=== PATIENT | female | born 1960 | race African-American/Black ===

== ENCOUNTER 2016-07-05 11:55 | Emergency (ER) | payer OTHER, MEDICAID ==
[~2016-07-05] VITALS: Ht 175.3 cm; Wt 77.0 kg
[~2016-07-05 11:55] MED LIST: HYDROCHLOROTHIAZIDE; LOSARTAN
[2016-07-05] MEDS ORDERED: KETOROLAC 60MG/2ML VIAL IM ONE ×2 (12:45→13:30)
[2016-07-05 13:29] LABS: CLARITY URINE CLEAR (CLEAR); COLOR URINE YELLOW (YELLOW); GLUCOSE URINE NEGATIVE (NEGATIVE); KETONES URINE NEGATIVE (NEGATIVE); LEUKOCYTE ESTERASE URINE 1+ (NEGATIVE); NITRITE URINE NEGATIVE (NEGATIVE); OCCULT BLOOD URINE NEGATIVE (NEGATIVE); PROTEIN URINE NEGATIVE (NEGATIVE); UROBILINOGEN URINE 0.2 E.U./dL (0.2-1.0)
[2016-07-05 13:42] VITALS: BP 127/81
[2016-07-05 13:45] LABS: BACTERIA URINE NONE SEEN; RBC URINE NONE SEEN /hpf (0-2); SQUAMOUS EPITHELIAL CELL URINE 1+ /lpf (RARE/1+)
== END 2016-07-05 15:31 | disposition home or self-care (01) ==
LOC: ER 12:23
DX: M54.5 Low back pain (principal); I10 Essential (primary) hypertension; Z87.891 Personal history of nicotine dependence
CPT/HCPCS: 81001; 87086; 96372; 99284; J1885

== ENCOUNTER 2016-12-10 08:00 | Emergency (ER) | payer OTHER, MEDICAID ==
[~2016-12-10] VITALS: Ht 175.3 cm; Wt 77.0 kg
[2016-12-10 08:02] VITALS: BP 112/78
[2016-12-10] MEDS ORDERED: BACITRACIN ZINC OINT UDPKT TOP ONE (09:00)
== END 2016-12-10 10:33 | disposition home or self-care (01) ==
LOC: ER 08:00
DX: S80.812A Abrasion, left lower leg, initial encounter (principal); S60.512A Abrasion of left hand, initial encounter; I10 Essential (primary) hypertension; R05 Cough; W55.03XA Scratched by cat, initial encounter; Y93.89 Activity, other specified; Y92.89 Other specified places as the place of occurrence of the external cause; Y99.8 Other external cause status
CPT/HCPCS: 71010; 99283

== ENCOUNTER 2017-04-23 09:01 | Emergency (ER) | payer OTHER, MEDICAID ==
[~2017-04-23] VITALS: Ht 175.3 cm; Wt 80.0 kg
[2017-04-23 12:35] LABS: CLARITY URINE CLEAR (CLEAR); COLOR URINE YELLOW (YELLOW); KETONES URINE NEGATIVE (NEGATIVE); LEUKOCYTE ESTERASE URINE TRACE (NEGATIVE); NITRITE URINE NEGATIVE (NEGATIVE); OCCULT BLOOD URINE NEGATIVE (NEGATIVE); PROTEIN URINE NEGATIVE (NEGATIVE); SPECIFIC GRAVITY URINE 1.019 (1.005-1.030); UROBILINOGEN URINE 0.2 E.U./dL (0.2-1.0)
[2017-04-23 14:35] VITALS: BP 152/101
== END 2017-04-23 15:10 | disposition home or self-care (01) ==
LOC: ER 13:19
DX: R30.0 Dysuria (principal); R07.81 Pleurodynia; I10 Essential (primary) hypertension; Z87.442 Personal history of urinary calculi; Z87.440 Personal history of urinary (tract) infections
CPT/HCPCS: 81001; 99283

== ENCOUNTER 2017-05-04 12:19 | Emergency (ER) | payer OTHER, MEDICAID ==
[~2017-05-04] VITALS: Ht 175.3 cm; Wt 82.0 kg
[2017-05-04] MEDS ORDERED: ASPIRIN 81MG TABLET PO ONE (13:30)
[2017-05-04 14:08] LABS: BASOPHILS % 0.8 % (0.0-2.0); EOSINOPHILS % 0.4 % (0.0-5.0); HEMATOCRIT. 40.1 % (36.0-48.0); HEMOGLOBIN. 13.4 g/dL (12.0-16.0); LYMPHOCYTES % 52.3 % (20.0-50.0); MEAN CORPUSCULAR HEMOGLOBIN 30.3 pg (28.0-32.0); MEAN CORPUSCULAR VOLUME 90.2 fL (81.0-99.0); MEAN PLATELET VOLUME 7.7 fl (7.4-10.4); MONOCYTES % 10.5 % (2.0-8.0); PLATELET 222 x1000/uL (130-400); RED BLOOD CELL COUNT 4.44 mill/uL (4.2-5.4); RED CELL DISTRIBUTION WIDTH 13.1 % (11.6-14.6)
[2017-05-04 14:15] LABS: PARTIAL THROMBOPLASTIN TIME 25.9 sec (23.4-31.0); PROTHROMBIN TIME 10.7 sec (9.4-11.6)
[2017-05-04 14:35] LABS: CHLORIDE 104 mEq/L (98-107)
[2017-05-04 19:53] VITALS: BP 112/77
[2017-05-04] MEDS ORDERED: ASPIRIN 81MG TABLET PO NR (20:45)
[2017-05-04 21:51] LABS: CLARITY URINE CLEAR (CLEAR); COLOR URINE YELLOW (YELLOW); KETONES URINE TRACE (NEGATIVE); LEUKOCYTE ESTERASE URINE 1+ (NEGATIVE); NITRITE URINE NEGATIVE (NEGATIVE); OCCULT BLOOD URINE NEGATIVE (NEGATIVE); PROTEIN URINE NEGATIVE (NEGATIVE); SPECIFIC GRAVITY URINE 1.026 (1.005-1.030); UROBILINOGEN URINE 0.2 E.U./dL (0.2-1.0)
== END 2017-05-04 23:17 | disposition home or self-care (01) ==
LOC: ER 14:51
DX: J06.9 Acute upper respiratory infection, unspecified (principal); N39.0 Urinary tract infection, site not specified; R79.1 Abnormal coagulation profile; I10 Essential (primary) hypertension; Z79.82 Long term (current) use of aspirin; Z87.442 Personal history of urinary calculi
CPT/HCPCS: 36415; 71045; 81001; 83880; 84484; 87804; 93005; 99285

== ENCOUNTER 2018-04-27 09:57 | Emergency (ER) | payer OTHER, MEDICAID ==
[~2018-04-27] VITALS: Ht 165.1 cm; Wt 86.0 kg
[2018-04-27] MEDS ORDERED: ASPIRIN 81MG TABLET PO ONE (12:15)
[2018-04-27 13:36] LABS: BASOPHILS % 1.3 % (0.0-2.0); EOSINOPHILS % 3.3 % (0.0-5.0); HEMATOCRIT. 38.4 % (36.0-48.0); HEMOGLOBIN. 12.6 g/dL (12.0-16.0); LYMPHOCYTES % 37.3 % (20.0-50.0); MEAN CORPUSCULAR VOLUME 91.6 fL (81.0-99.0); MEAN PLATELET VOLUME 8.2 fl (7.4-10.4); NEUTROPHILS % 48.1 % (40.0-76.0); PLATELET 244 x1000/uL (130-400); RED BLOOD CELL COUNT 4.19 mill/uL (4.2-5.4); RED CELL DISTRIBUTION WIDTH 13.2 % (11.6-14.6)
[2018-04-27 13:41] LABS: CHLORIDE 108 mEq/L (98-107)
[2018-04-27 15:30] VITALS: BP 135/83
== END 2018-04-27 15:33 | disposition home or self-care (01) ==
LOC: ER 09:57
DX: R07.89 Other chest pain (principal); N32.3 Diverticulum of bladder; D25.9 Leiomyoma of uterus, unspecified; Z98.890 Other specified postprocedural states; Z91.041 Radiographic dye allergy status
CPT/HCPCS: 36415; 71045; 74176; 83880; 84484; 93005; 99284

== ENCOUNTER 2018-11-23 11:13 | Emergency (ER) | payer MEDICARE, MEDICAID ==
[~2018-11-23] VITALS: Ht 175.3 cm; Wt 77.0 kg
[2018-11-23 12:43] LABS: CLARITY URINE CLOUDY (CLEAR); COLOR URINE YELLOW (YELLOW); KETONES URINE NEGATIVE (NEGATIVE); LEUKOCYTE ESTERASE URINE 3+ (NEGATIVE); NITRITE URINE POSITIVE (NEGATIVE); OCCULT BLOOD URINE NEGATIVE (NEGATIVE); PROTEIN URINE NEGATIVE (NEGATIVE); SPECIFIC GRAVITY URINE 1.015 (1.005-1.030); UROBILINOGEN URINE 0.2 E.U./dL (0.2-1.0)
[2018-11-23] MEDS ORDERED: KETOROLAC 15MG/ML VIAL IM ONE (12:45)
[2018-11-23] MEDS ORDERED: CEFTRIAXONE 1 G PREMIX 50 ML IV ONE (13:00)
[2018-11-23 13:55] VITALS: BP 156/87
== END 2018-11-23 14:22 | disposition home or self-care (01) ==
LOC: ER 11:13
DX: N39.0 Urinary tract infection, site not specified (principal); N81.10 Cystocele, unspecified; I10 Essential (primary) hypertension; Z91.041 Radiographic dye allergy status; Z90.89 Acquired absence of other organs; Z98.890 Other specified postprocedural states
CPT/HCPCS: 81003; 87077; 87086; 87186; 96365; 96372; 99283; J0696; J1885

== ENCOUNTER 2018-12-18 12:23 | Emergency (ER) | payer MEDICARE, MEDICAID ==
[~2018-12-18] VITALS: Ht 177.8 cm; Wt 100.0 kg
[2018-12-18 14:35] VITALS: BP 136/74
== END 2018-12-18 14:36 | disposition home or self-care (01) ==
LOC: ER 12:23
DX: B02.9 Zoster without complications (principal); I10 Essential (primary) hypertension; Z90.89 Acquired absence of other organs; Z91.041 Radiographic dye allergy status
CPT/HCPCS: 99283

== ENCOUNTER 2019-11-20 11:39 | Emergency (ER) | payer BC, OTHER ==
[~2019-11-20] VITALS: Ht 175.3 cm; Wt 85.0 kg
[2019-11-20 15:31] LABS: BASOPHILS % 1.3 % (0.0-2.0); EOSINOPHILS % 2.2 % (0.0-5.0); HEMATOCRIT. 38.5 % (36.0-48.0); HEMOGLOBIN. 12.9 g/dL (12.0-16.0); LYMPHOCYTES % 40.2 % (20.0-50.0); MEAN CORPUSCULAR HEMOGLOBIN 30.6 pg (28.0-32.0); MEAN CORPUSCULAR VOLUME 91.6 fL (81.0-99.0); MONOCYTES % 12.5 % (2.0-8.0); NEUTROPHILS % 43.8 % (40.0-76.0); PLATELET 247 x1000/uL (130-400); RED CELL DISTRIBUTION WIDTH 12.6 % (11.6-14.6)
[2019-11-20 15:37] LABS: CHLORIDE 106 mEq/L (98-107)
[2019-11-20 15:42] LABS: PROTHROMBIN TIME 10.7 sec (9.6-11.0)
[2019-11-20 16:12] LABS: CLARITY URINE CLEAR (CLEAR); COLOR URINE YELLOW (YELLOW); KETONES URINE NEGATIVE (NEGATIVE); LEUKOCYTE ESTERASE URINE 1+ (NEGATIVE); NITRITE URINE NEGATIVE (NEGATIVE); OCCULT BLOOD URINE TRACE (NEGATIVE); PH URINE 6.5 (4.5-8.0); PROTEIN URINE TRACE (NEGATIVE); SPECIFIC GRAVITY URINE 1.023 (1.005-1.030); UROBILINOGEN URINE 0.2 E.U./dL (0.2-1.0)
[2019-11-20 16:15] VITALS: BP 155/91
[2019-11-20 16:23] LABS: *AMPHETAMINES SCREEN URINE NEGATIVE (NEGATIVE); *BARBITURATES SCREEN URINE NEGATIVE (NEGATIVE); *BENZODIAZEPINES SCREEN URINE NEGATIVE (NEGATIVE); *COCAINE SCREEN URINE NEGATIVE (NEGATIVE)
[2019-11-20 16:25] LABS: CANNABINOID URINE SCREEN NEGATIVE (NEGATIVE); METHADONE URINE SCREEN NEGATIVE (NEGATIVE); OPIATES URINE SCREEN NEGATIVE (NEGATIVE); PHENCYCLIDINE URINE SCREEN NEGATIVE (NEGATIVE)
== END 2019-11-20 16:20 | disposition home or self-care (01) ==
LOC: ER 12:06
DX: D25.9 Leiomyoma of uterus, unspecified (principal); N32.3 Diverticulum of bladder; I10 Essential (primary) hypertension; Z90.89 Acquired absence of other organs; Z98.890 Other specified postprocedural states; Z91.041 Radiographic dye allergy status
CPT/HCPCS: 36415; 74176; 76830; 76856; 80053; 80305; 81003; 85025; 93005; 99285

== ENCOUNTER 2019-12-12 12:38 | Emergency (ER) | payer MEDICARE, MEDICAID ==
[~2019-12-12] VITALS: Ht 175.3 cm; Wt 86.0 kg
[2019-12-12 12:43] VITALS: BP 133/82
== END 2019-12-12 17:16 | disposition home or self-care (01) ==
LOC: ER 12:38
DX: D24.2 Benign neoplasm of left breast (principal); I10 Essential (primary) hypertension; Z88.8 Allergy status to other drugs, medicaments and biological substances
CPT/HCPCS: 71046; 76641; 93005; 99284

== ENCOUNTER 2020-08-03 09:59 | Emergency (ER) | payer MEDICARE, MEDICAID ==
[~2020-08-03] VITALS: Ht 170.2 cm; Wt 65.0 kg
[~2020-08-03 09:59] MED LIST changes: +NAPR-420 MT
[2020-08-03] MEDS ORDERED: IBUPROFEN 600MG TABLET PO STA (10:26)
[2020-08-03 10:48] LABS: CLARITY URINE CLEAR (CLEAR); COLOR URINE YELLOW (YELLOW); KETONES URINE NEGATIVE (NEGATIVE); LEUKOCYTE ESTERASE URINE 3+ (NEGATIVE); NITRITE URINE NEGATIVE (NEGATIVE); OCCULT BLOOD URINE NEGATIVE (NEGATIVE); PROTEIN URINE NEGATIVE (NEGATIVE); SPECIFIC GRAVITY URINE 1.013 (1.005-1.030); UROBILINOGEN URINE 0.2 E.U./dL (0.2-1.0)
[2020-08-03 10:51] VITALS: BP 150/93
[2020-08-03] MEDS ORDERED: IBUP-2029 MT (11:59)
[2020-08-03] MEDS ORDERED: AMOX-494 MT (12:00)
== END 2020-08-03 12:31 | disposition home or self-care (01) ==
LOC: ER 10:11
DX: R07.89 Other chest pain (principal); M79.18 Myalgia, other site; N30.90 Cystitis, unspecified without hematuria; E11.9 Type 2 diabetes mellitus without complications; Z98.890 Other specified postprocedural states; Z79.899 Other long term (current) drug therapy
CPT/HCPCS: 71045; 81003; 81025; 87077; 87186; 93005; 99285

== ENCOUNTER 2020-10-08 11:24 | Emergency (ER) | payer MEDICARE, MEDICAID ==
[~2020-10-08] VITALS: Ht 175.3 cm; Wt 73.0 kg
[~2020-10-08 11:24] MED LIST changes: +AMOX-494 MT; +IBUP-2029 MT
[2020-10-08 13:25] LABS: CHLORIDE 110 mEq/L (98-107)
[2020-10-08 13:34] LABS: PROTHROMBIN TIME 10.4 sec (9.6-11.0)
[2020-10-08 13:54] LABS: CLARITY URINE CLOUDY (CLEAR); COLOR URINE YELLOW (YELLOW); KETONES URINE NEGATIVE (NEGATIVE); LEUKOCYTE ESTERASE URINE 2+ (NEGATIVE); NITRITE URINE NEGATIVE (NEGATIVE); OCCULT BLOOD URINE TRACE (NEGATIVE); PH URINE 5.5 (4.5-8.0); PROTEIN URINE 1+ (NEGATIVE); SPECIFIC GRAVITY URINE 1.018 (1.005-1.030); UROBILINOGEN URINE 0.2 E.U./dL (0.2-1.0)
[2020-10-08] MEDS ORDERED: CEPH500T MT (14:24)
[2020-10-08 14:46] VITALS: BP 136/79
[2020-10-08] MEDS ORDERED: ACET650T37 MT (14:47)
== END 2020-10-08 15:27 | disposition home or self-care (01) ==
LOC: ER 11:24
DX: N39.0 Urinary tract infection, site not specified (principal); E11.9 Type 2 diabetes mellitus without complications; Z91.041 Radiographic dye allergy status; Z90.49 Acquired absence of other specified parts of digestive tract
CPT/HCPCS: 36415; 80053; 81003; 99283

== ENCOUNTER 2020-11-24 11:17 | Emergency (ER) | payer MEDICARE, MEDICAID ==
[~2020-11-24] VITALS: Ht 175.3 cm; Wt 77.0 kg
[~2020-11-24 11:17] MED LIST changes: +ACET650T37 MT; +CEPH500T MT
[2020-11-24] MEDS ORDERED: MORPHINE SULFATE 4 MG/ML CPJ (NOT FOR IM USE) IV STA (12:37)
[2020-11-24] MEDS ORDERED: SODIUM CHLORIDE 0.9% 1,000 ML IV ONE (12:45)
[2020-11-24 13:21] LABS: CHLORIDE 108 mEq/L (98-107)
[2020-11-24 13:23] LABS: PROTHROMBIN TIME 10.7 sec (9.6-11.0)
[2020-11-24 13:26] LABS: EOSINOPHILS % 2.3 % (0.0-5.0); ETHANOL BLOOD < 10 mg/dL; HEMOGLOBIN. 11.5 g/dL (12.0-16.0); LYMPHOCYTES % 34.5 % (20.0-50.0); MEAN CORPUSCULAR HEMOGLOBIN 30.7 pg (28.0-32.0); MEAN CORPUSCULAR VOLUME 91.1 fL (81.0-99.0); MONOCYTES % 9.8 % (2.0-8.0); NEUTROPHILS % 52.4 % (40.0-76.0); PLATELET 316 x1000/uL (130-400); RED BLOOD CELL COUNT 3.74 mill/uL (4.2-5.4); RED CELL DISTRIBUTION WIDTH 13.4 % (11.6-14.6)
[2020-11-24] MEDS ORDERED: ACET-2708 MT (17:58)
[2020-11-24] MEDS ORDERED: CLIN300C12 MT (17:58)
[2020-11-24] MEDS ORDERED: CLINDAMYCIN HCL 150MG CAPSULE PO SCH (18:00)
[2020-11-24 21:21] VITALS: BP 136/81
== END 2020-11-24 21:25 | disposition home or self-care (01) ==
LOC: ER 11:17
DX: T81.49XA Infection following a procedure, other surgical site, initial encounter (principal); L03.311 Cellulitis of abdominal wall; Y83.8 Other surgical procedures as the cause of abnormal reaction of the patient, or of later complication, without mention of misadventure at the time of the procedure; Y92.018 Other place in single-family (private) house as the place of occurrence of the external cause; I10 Essential (primary) hypertension; E11.9 Type 2 diabetes mellitus without complications
CPT/HCPCS: 36415; 74176; 80053; 80320; 83690; 85025; 85610; 96361; 96374; 99285; J2270; J7030; G0480

== ENCOUNTER 2021-06-20 13:22 | Emergency (ER) | payer MEDICARE, OTHER ==
[~2021-06-20] VITALS: Ht 175.3 cm; Wt 74.0 kg
[~2021-06-20 13:22] MED LIST changes: +ACET-2708 MT; +CLIN300C12 MT
[2021-06-20 13:30] VITALS: BP 135/76
[2021-06-20 15:13] LABS: CLARITY URINE CLEAR (CLEAR); COLOR URINE YELLOW (YELLOW); KETONES URINE TRACE (NEGATIVE); LEUKOCYTE ESTERASE URINE TRACE (NEGATIVE); NITRITE URINE NEGATIVE (NEGATIVE); OCCULT BLOOD URINE 1+ (NEGATIVE); PH URINE 5.5 (4.5-8.0); PROTEIN URINE TRACE (NEGATIVE); SPECIFIC GRAVITY URINE 1.023 (1.005-1.030); UROBILINOGEN URINE 0.2 E.U./dL (0.2-1.0)
== END 2021-06-20 17:44 | disposition left against medical advice (07) ==
LOC: ER 13:36
DX: Z53.21 Procedure and treatment not carried out due to patient leaving prior to being seen by health care provider (principal)
CPT/HCPCS: 81003; 99283

== ENCOUNTER 2021-06-22 10:12 | Emergency (ER) | payer MEDICARE, MEDICAID ==
[~2021-06-22] VITALS: Ht 175.3 cm; Wt 91.0 kg
[2021-06-22 12:26] LABS: CLARITY URINE CLEAR (CLEAR); COLOR URINE YELLOW (YELLOW); KETONES URINE NEGATIVE (NEGATIVE); LEUKOCYTE ESTERASE URINE TRACE (NEGATIVE); NITRITE URINE NEGATIVE (NEGATIVE); OCCULT BLOOD URINE TRACE (NEGATIVE); PROTEIN URINE NEGATIVE (NEGATIVE); SPECIFIC GRAVITY URINE 1.016 (1.005-1.030); UROBILINOGEN URINE 0.2 E.U./dL (0.2-1.0)
[2021-06-22] MEDS ORDERED: CEPH250T MT (12:51)
[2021-06-22 12:59] VITALS: BP 150/89
== END 2021-06-22 13:00 | disposition home or self-care (01) ==
LOC: ER 10:12
DX: N39.0 Urinary tract infection, site not specified (principal); I10 Essential (primary) hypertension; E11.9 Type 2 diabetes mellitus without complications; Z79.899 Other long term (current) drug therapy
CPT/HCPCS: 81003; 99283

== ENCOUNTER 2021-08-27 11:09 | Emergency (ER) | payer MEDICAID, MEDICARE ==
[~2021-08-27] VITALS: Ht 175.3 cm; Wt 82.0 kg
[~2021-08-27 11:09] MED LIST changes: +CEPH250T MT
[2021-08-27 11:28] VITALS: BP 142/95
[2021-08-27] MEDS ORDERED: FLUORESCEIN SODIUM 1MG/STRIP RIGHTEYE ONE (11:30)
[2021-08-27] MEDS ORDERED: TETRACAINE 0.5% OPHTH DROPS 4ML RIGHTEYE ONE (11:30)
[2021-08-27] MEDS ORDERED: ERYT1OIN6 RIGHTEYE (12:17)
== END 2021-08-27 12:47 | disposition home or self-care (01) ==
LOC: ER 11:09
DX: H20.011 Primary iridocyclitis, right eye (principal); E11.9 Type 2 diabetes mellitus without complications; I10 Essential (primary) hypertension; Z90.710 Acquired absence of both cervix and uterus; Z90.89 Acquired absence of other organs; Z91.041 Radiographic dye allergy status
CPT/HCPCS: 99283

== ENCOUNTER 2021-10-03 13:35 | Emergency (ER) | payer MEDICARE, MEDICAID ==
[~2021-10-03] VITALS: Ht 175.3 cm; Wt 85.0 kg
[~2021-10-03 13:35] MED LIST changes: +ACET-3163 MT; -ACET650T37 MT; +CLIN-194 MT; -CLIN300C12 MT; +ERYT1OIN6 RIGHTEYE
[2021-10-03 15:08] VITALS: BP 128/81
[2021-10-03] MEDS ORDERED: IBUPROFEN 600MG TABLET PO STA (15:08)
[2021-10-03] MEDS ORDERED: NAPR-681 PO (17:16)
== END 2021-10-03 17:58 | disposition home or self-care (01) ==
LOC: ER 14:09
DX: M20.11 Hallux valgus (acquired), right foot (principal); M19.071 Primary osteoarthritis, right ankle and foot; R59.0 Localized enlarged lymph nodes; I10 Essential (primary) hypertension; E11.9 Type 2 diabetes mellitus without complications; Z91.041 Radiographic dye allergy status
CPT/HCPCS: 73660; 87070; 87430; 99284

== ENCOUNTER 2022-01-11 11:14 | Emergency (ER) | payer MEDICARE, MEDICAID ==
[~2022-01-11] VITALS: Ht 167.6 cm; Wt 89.0 kg
[~2022-01-11 11:14] MED LIST changes: +NAPR-681 PO
[2022-01-11 11:35] VITALS: BP 147/97
[2022-01-11 14:48] LABS: CLARITY URINE CLOUDY (CLEAR); COLOR URINE YELLOW (YELLOW); KETONES URINE NEGATIVE (NEGATIVE); LEUKOCYTE ESTERASE URINE 2+ (NEGATIVE); NITRITE URINE POSITIVE (NEGATIVE); OCCULT BLOOD URINE 1+ (NEGATIVE); PH URINE 5.5 (4.5-8.0); PROTEIN URINE TRACE (NEGATIVE); SPECIFIC GRAVITY URINE 1.016 (1.005-1.030); UROBILINOGEN URINE 0.2 E.U./dL (0.2-1.0)
[2022-01-11] MEDS ORDERED: CEFTRIAXONE SODIUM 1 G/VIAL IM ONE (16:45)
[2022-01-11] MEDS ORDERED: CEFP200T13 MT (17:04)
== END 2022-01-11 17:56 | disposition home or self-care (01) ==
LOC: ER 11:14
DX: N39.0 Urinary tract infection, site not specified (principal); R59.0 Localized enlarged lymph nodes; I10 Essential (primary) hypertension; E11.9 Type 2 diabetes mellitus without complications; Z91.041 Radiographic dye allergy status; Z90.710 Acquired absence of both cervix and uterus; Z90.89 Acquired absence of other organs
CPT/HCPCS: 81003; 87077; 87086; 87186; 96372; 99283; J0696

== ENCOUNTER 2022-02-28 11:17 | Emergency (ER) | payer MEDICARE ==
[~2022-02-28] VITALS: Ht 177.8 cm; Wt 82.0 kg
[~2022-02-28 11:17] MED LIST changes: +CEFP200T13 MT; +NITR-87 MT
[2022-02-28] MEDS ORDERED: ONDANSETRON HCL 4MG/2ML INJ IV STA (12:34)
[2022-02-28] MEDS ORDERED: SODIUM CHLORIDE 0.9% 1,000 ML IV ONE ×2 (12:45→14:15)
[2022-02-28 13:30] LABS: BASOPHILS % 1.2 % (0.0-2.0); EOSINOPHILS % 2.7 % (0.0-5.0); HEMATOCRIT. 39.6 % (36.0-48.0); HEMOGLOBIN. 13.1 g/dL (12.0-16.0); LYMPHOCYTES % 47.6 % (20.0-50.0); MEAN CORPUSCULAR HEMOGLOBIN 29.9 pg (28.0-32.0); MEAN CORPUSCULAR VOLUME 90.3 fL (81.0-99.0); MONOCYTES % 7.7 % (2.0-8.0); NEUTROPHILS % 40.8 % (40.0-76.0); PLATELET 250 x1000/uL (130-400); RED BLOOD CELL COUNT 4.39 mill/uL (4.2-5.4); RED CELL DISTRIBUTION WIDTH 13.3 % (11.6-14.6)
[2022-02-28 13:33] LABS: CHLORIDE 107 mEq/L (98-107)
[2022-02-28 13:49] LABS: CLARITY URINE TURBID (CLEAR); COLOR URINE DARK YELLOW (YELLOW); KETONES URINE TRACE (NEGATIVE); LEUKOCYTE ESTERASE URINE 2+ (NEGATIVE); NITRITE URINE NEGATIVE (NEGATIVE); OCCULT BLOOD URINE NEGATIVE (NEGATIVE); PROTEIN URINE 1+ (NEGATIVE); SPECIFIC GRAVITY URINE 1.022 (1.005-1.030)
[2022-02-28 15:45] VITALS: BP 143/86
[2022-02-28] MEDS ORDERED: CEPH500C2 MT (15:45)
== END 2022-02-28 16:51 | disposition home or self-care (01) ==
LOC: ER 11:34
DX: U07.1 COVID-19 (principal); E86.0 Dehydration; N39.0 Urinary tract infection, site not specified; I10 Essential (primary) hypertension; E11.9 Type 2 diabetes mellitus without complications; Z91.041 Radiographic dye allergy status; Z79.899 Other long term (current) drug therapy
CPT/HCPCS: 36415; 80053; 81003; 84484; 85025; 87426; 93005; 96361; 96374; 99284; C9803; J2405; J7030

== ENCOUNTER 2022-05-12 12:02 | Emergency (ER) | payer MEDICARE ==
[~2022-05-12] VITALS: Ht 175.3 cm; Wt 73.0 kg
[~2022-05-12 12:02] MED LIST changes: +CEPH500C2 MT
[2022-05-12] MEDS ORDERED: IBUPROFEN 600MG TABLET PO ONE (13:15)
[2022-05-12 13:40] VITALS: BP 134/89
[2022-05-12 16:20] LABS: BASOPHILS % 2.5 % (0.0-2.0); EOSINOPHILS % 3.5 % (0.0-5.0); HEMATOCRIT. 37.9 % (36.0-48.0); HEMOGLOBIN. 12.7 g/dL (12.0-16.0); LYMPHOCYTES % 40.6 % (20.0-50.0); MEAN CORPUSCULAR HEMOGLOBIN 29.9 pg (28.0-32.0); MEAN CORPUSCULAR VOLUME 88.9 fL (81.0-99.0); MEAN PLATELET VOLUME 8.1 fl (7.4-10.4); MONOCYTES % 11.1 % (2.0-8.0); NEUTROPHILS % 42.3 % (40.0-76.0); PLATELET 243 x1000/uL (130-400); RED BLOOD CELL COUNT 4.26 mill/uL (4.2-5.4); RED CELL DISTRIBUTION WIDTH 13.5 % (11.6-14.6)
[2022-05-12 16:23] LABS: CHLORIDE 109 mEq/L (98-107)
[2022-05-12 16:25] LABS: PROTHROMBIN TIME 10.4 sec (9.6-11.0)
[2022-05-12 16:50] LABS: CLARITY URINE CLOUDY (CLEAR); COLOR URINE YELLOW (YELLOW); KETONES URINE NEGATIVE (NEGATIVE); LEUKOCYTE ESTERASE URINE 1+ (NEGATIVE); NITRITE URINE NEGATIVE (NEGATIVE); OCCULT BLOOD URINE NEGATIVE (NEGATIVE); PROTEIN URINE NEGATIVE (NEGATIVE); SPECIFIC GRAVITY URINE 1.019 (1.005-1.030); UROBILINOGEN URINE 0.2 E.U./dL (0.2-1.0)
[2022-05-12] MEDS ORDERED: CYCL5TAB MT (17:42)
[2022-05-12] MEDS ORDERED: CEPH500C2 MT (17:42)
== END 2022-05-12 17:50 | disposition home or self-care (01) ==
LOC: ER 12:02
DX: N39.0 Urinary tract infection, site not specified (principal); N20.0 Calculus of kidney; M25.552 Pain in left hip; E11.9 Type 2 diabetes mellitus without complications; I10 Essential (primary) hypertension; Z90.710 Acquired absence of both cervix and uterus; Z90.89 Acquired absence of other organs
CPT/HCPCS: 36415; 73502; 74176; 80053; 81003; 85025; 99285

== ENCOUNTER 2022-08-10 12:37 | Emergency (ER) | payer MEDICARE, MEDICAID ==
[~2022-08-10] VITALS: Ht 175.3 cm; Wt 82.0 kg
[~2022-08-10 12:37] MED LIST changes: +CYCL5TAB MT
[2022-08-10 13:00] VITALS: BP 178/102
[2022-08-10 15:11] LABS: HCG SCREEN NEGATIVE
[2022-08-10 15:15] LABS: CHLORIDE 106 mEq/L (98-107)
[2022-08-10 15:20] LABS: BASOPHILS % 1.7 % (0.0-2.0); EOSINOPHILS % 5.1 % (0.0-5.0); HEMATOCRIT. 38.8 % (36.0-48.0); LYMPHOCYTES % 37.2 % (20.0-50.0); MEAN CORPUSCULAR HEMOGLOBIN 30.3 pg (28.0-32.0); MEAN CORPUSCULAR VOLUME 90.3 fL (81.0-99.0); MEAN PLATELET VOLUME 8.1 fl (7.4-10.4); MONOCYTES % 9.3 % (2.0-8.0); NEUTROPHILS % 46.7 % (40.0-76.0); PLATELET 320 x1000/uL (130-400); RED BLOOD CELL COUNT 4.29 mill/uL (4.2-5.4); RED CELL DISTRIBUTION WIDTH 13.7 % (11.6-14.6)
[2022-08-10 15:25] LABS: CLARITY URINE CLOUDY (CLEAR); COLOR URINE YELLOW (YELLOW); KETONES URINE NEGATIVE (NEGATIVE); LEUKOCYTE ESTERASE URINE 3+ (NEGATIVE); NITRITE URINE POSITIVE (NEGATIVE); OCCULT BLOOD URINE TRACE (NEGATIVE); PH URINE 5.5 (4.5-8.0); PROTEIN URINE TRACE (NEGATIVE); SPECIFIC GRAVITY URINE 1.017 (1.005-1.030); UROBILINOGEN URINE 0.2 E.U./dL (0.2-1.0)
[2022-08-10] MEDS ORDERED: FLUC150T46 PO (19:59)
[2022-08-10] MEDS ORDERED: ONDA4TAB50 PO (19:59)
[2022-08-10] MEDS ORDERED: CEPH500T PO (19:59)
== END 2022-08-10 20:15 | disposition home or self-care (01) ==
LOC: ER 12:37
DX: N39.0 Urinary tract infection, site not specified (principal); I10 Essential (primary) hypertension; E11.9 Type 2 diabetes mellitus without complications; Z79.899 Other long term (current) drug therapy; Z91.041 Radiographic dye allergy status
CPT/HCPCS: 36415; 80053; 81003; 84703; 85025; 87186; 99283

== ENCOUNTER 2022-08-16 13:45 | Emergency (ER) | payer MEDICARE, MEDICAID ==
[~2022-08-16] VITALS: Ht 175.3 cm; Wt 75.0 kg
[~2022-08-16 13:45] MED LIST changes: +CEPH500T PO; +FLUC150T46 PO; +ONDA4TAB50 PO
[2022-08-16 14:14] VITALS: BP 164/105
[2022-08-16] MEDS: NAPROXEN 250MG TABLET PO ONE ×2 (16:45→18:45)
[2022-08-16] MEDS ORDERED: CYCLOBENZAPRINE 10MG TABLET PO ONE (16:45)
[2022-08-16] MEDS ORDERED: NAPR-1176 MT (17:52)
[2022-08-16] MEDS ORDERED: CYCL10TA21 MT (17:52)
== END 2022-08-16 20:59 | disposition home or self-care (01) ==
LOC: ER 13:45
DX: R10.2 Pelvic and perineal pain (principal); E11.9 Type 2 diabetes mellitus without complications; I10 Essential (primary) hypertension; Z87.440 Personal history of urinary (tract) infections
CPT/HCPCS: 73503; 93971; 99284

== ENCOUNTER 2023-03-19 08:52 | Emergency (ER) | payer MEDICARE, MEDICAID ==
[~2023-03-19] VITALS: Ht 172.7 cm; Wt 81.6 kg
[~2023-03-19 08:52] MED LIST changes: +CYCL10TA21 MT; +NAPR-1176 MT
[2023-03-19 09:15] VITALS: BP 161/99; O2SAT 96
[2023-03-19] MEDS ORDERED: TETRACAINE 0.5% OPHTH DROPS 4ML RIGHTEYE ONE (10:45)
[2023-03-19] MEDS ORDERED: FLUORESCEIN SODIUM 1MG/STRIP RIGHTEYE ONE (10:45)
[2023-03-19] MEDS ORDERED: BENZ28CR2 TP (11:08)
[2023-03-19] MEDS ORDERED: HYPR15DR23 EACHEYE (12:07)
[2023-03-19] MEDS ORDERED: ACETAMINOPHEN 325MG TABLET PO ONE (12:30)
[2023-03-19 12:56] VITALS: PULSE 79; RESP 20; TEMP 98.2
== END 2023-03-19 13:09 | disposition home or self-care (01) ==
LOC: ER 09:59
DX: N95.2 Postmenopausal atrophic vaginitis (principal); E11.9 Type 2 diabetes mellitus without complications; I10 Essential (primary) hypertension; Z91.041 Radiographic dye allergy status; Z79.899 Other long term (current) drug therapy
CPT/HCPCS: 99283

== ENCOUNTER 2023-04-26 20:01 | Emergency (ER) | payer MEDICARE, MEDICAID ==
[~2023-04-26] VITALS: Ht 172.7 cm; Wt 78.0 kg
[~2023-04-26 20:01] MED LIST changes: +BENZ28CR2 TP; +HYPR15DR23 EACHEYE
[2023-04-26 20:19] VITALS: O2SAT 98
[2023-04-26 23:50] LABS: BASOPHILS % 0.6 % (0.0-2.0); EOSINOPHILS % 0.1 % (0.0-5.0); HEMATOCRIT. 43.6 % (36.0-48.0); HEMOGLOBIN. 14.5 g/dL (12.0-16.0); LYMPHOCYTES % 17.2 % (20.0-50.0); MEAN CORPUSCULAR HEMOGLOBIN 30.3 pg (28.0-32.0); MEAN CORPUSCULAR HGB CONC 33.2 g/dL (31.0-37.0); MEAN CORPUSCULAR VOLUME 91.1 fL (81.0-99.0); MONOCYTES % 6.9 % (2.0-8.0); NEUTROPHILS % 75.2 % (40.0-76.0); PLATELET 317 x1000/uL (130-400); RED BLOOD CELL COUNT 4.78 mill/uL (4.2-5.4); RED CELL DISTRIBUTION WIDTH 13.1 % (11.6-14.6); WHITE BLOOD COUNT 7.2 x1000/uL (4.5-11.0)
[2023-04-27 00:03] LABS: PROTHROMBIN TIME 10.6 sec (9.6-11.0)
[2023-04-27 00:10] LABS: CLARITY URINE CLEAR (CLEAR); COLOR URINE YELLOW (YELLOW); GLUCOSE URINE NEGATIVE (NEGATIVE); KETONES URINE 1+ (NEGATIVE); LEUKOCYTE ESTERASE URINE NEGATIVE (NEGATIVE); NITRITE URINE NEGATIVE (NEGATIVE); OCCULT BLOOD URINE NEGATIVE (NEGATIVE); PH URINE 6.5 (4.5-8.0); PROTEIN URINE 1+ (NEGATIVE); SPECIFIC GRAVITY URINE 1.022 (1.005-1.030); UROBILINOGEN URINE 0.2 E.U./dL (0.2-1.0)
[2023-04-27 00:12] LABS: ALANINE AMINOTRANSFERASE 20 IU/L (10-49); ALBUMIN 4.6 g/dL (3.2-4.8); ASPARTATE AMINOTRANSFERASE 22 IU/L (<34); BILIRUBIN TOTAL 0.9 mg/dL (0.1-1.0); CARBON DIOXIDE 26 mEq/L (21-32); CHLORIDE 103 mEq/L (98-107); CREATININE 0.9 mg/dL (0.6-1.0); GLUCOSE 106 mg/dL (70-105); POTASSIUM 3.4 mEq/L (3.5-5.1); PROTEIN TOTAL 9.1 g/dL (6.0-8.3); SODIUM 137 mEq/L (136-145); TROPONIN I HIGH SENSITIVITY 5 ng/L (3.0-34); UREA NITROGEN BLOOD 12 mg/dL (9-23)
[2023-04-27] MEDS ORDERED: ONDANSETRON HCL 4MG TABLET PO NR (00:30)
[2023-04-27] MEDS ORDERED: ONDA4TAB11 PO (01:06)
[2023-04-27 01:40] VITALS: BP 160/95; PULSE 89; RESP 20; TEMP 98.2
[2023-04-27 01:57] LABS: SQUAMOUS EPITHELIAL CELL URINE 2+ /lpf (RARE/1+)
[2023-04-27 01:58] LABS: WBC URINE 0-2 /hpf (0-2)
[2023-04-27 01:59] LABS: RBC URINE 0-2 /hpf (0-2)
[2023-04-27 02:00] LABS: BACTERIA URINE 1+
== END 2023-04-27 01:46 | disposition home or self-care (01) ==
LOC: ER 20:01
DX: R10.9 Unspecified abdominal pain (principal); R11.2 Nausea with vomiting, unspecified; Z98.890 Other specified postprocedural states; Z90.710 Acquired absence of both cervix and uterus; Z88.8 Allergy status to other drugs, medicaments and biological substances
CPT/HCPCS: 99285; 71045; 80053; 81003; 83880; 83690; 85025; 85610; 84484; 36415; 93005; Q0162

== ENCOUNTER 2023-05-22 00:05 | Emergency (ER) | payer MEDICARE, MEDICAID ==
[~2023-05-22] VITALS: Ht 175.3 cm; Wt 81.2 kg
[~2023-05-22 00:05] MED LIST changes: -ACET-3163 MT; +AMLO5TAB88 PO; -AMOX-494 MT; -BENZ28CR2 TP; -CEFP200T13 MT; -CEPH250T MT; -CEPH500C2 MT; -CEPH500T MT; -CEPH500T PO; -CLIN-194 MT; -CYCL10TA21 MT; -CYCL5TAB MT; -ERYT1OIN6 RIGHTEYE; -FLUC150T46 PO; -HYDROCHLOROTHIAZIDE; -HYPR15DR23 EACHEYE; -IBUP-2029 MT; -LOSARTAN; -NAPR-1176 MT; -NAPR-420 MT; -NAPR-681 PO; -NITR-87 MT; -ONDA4TAB50 PO
[2023-05-22 00:16] VITALS: BP 138/100; PULSE 95; RESP 14; TEMP 98.1; O2SAT 98
[2023-05-22] MEDS: BACITRACIN ZINC OINT UDPKT TOP ONE (01:42)
[2023-06-06] MEDS ORDERED: LOSA1TAB37 MT (09:24)
== END 2023-05-22 02:18 | disposition home or self-care (01) ==
LOC: ER 00:05
DX: T81.30XA Disruption of wound, unspecified, initial encounter (principal); Z90.710 Acquired absence of both cervix and uterus; X58.XXXA Exposure to other specified factors, initial encounter
CPT/HCPCS: 99282

== ENCOUNTER 2023-05-22 10:53 | Emergency (ER) | payer MEDICARE, MEDICAID ==
[~2023-05-22] VITALS: Ht 175.3 cm; Wt 77.0 kg
[2023-05-22 11:09] VITALS: O2SAT 99
[2023-05-22 14:43] VITALS: BP 120/84; PULSE 76; RESP 16; TEMP 97.9
== END 2023-05-22 14:44 | disposition home or self-care (01) ==
LOC: ER 10:53
DX: T81.30XA Disruption of wound, unspecified, initial encounter (principal); Z90.710 Acquired absence of both cervix and uterus; X58.XXXA Exposure to other specified factors, initial encounter
CPT/HCPCS: 99281

== ENCOUNTER 2023-07-22 11:13 | Emergency (ER) | payer MEDICARE, MEDICAID ==
[~2023-07-22] VITALS: Ht 175.3 cm; Wt 80.0 kg
[~2023-07-22 11:13] MED LIST changes: +LOSA1TAB37 MT
[2023-07-22 11:20] VITALS: O2SAT 98
[2023-07-22 11:34] LABS: BASOPHILS % 1.2 % (0.0-2.0); EOSINOPHILS % 4.6 % (0.0-5.0); HEMOGLOBIN. 12.9 g/dL (12.0-16.0); LYMPHOCYTES % 37.8 % (20.0-50.0); MEAN CORPUSCULAR HEMOGLOBIN 30.2 pg (28.0-32.0); MEAN CORPUSCULAR HGB CONC 33.2 g/dL (31.0-37.0); MEAN CORPUSCULAR VOLUME 91.1 fL (81.0-99.0); MEAN PLATELET VOLUME 7.5 fl (7.4-10.4); MONOCYTES % 8.7 % (2.0-8.0); NEUTROPHILS % 47.7 % (40.0-76.0); PLATELET 284 x1000/uL (130-400); RED BLOOD CELL COUNT 4.28 mill/uL (4.2-5.4); RED CELL DISTRIBUTION WIDTH 13.8 % (11.6-14.6); WHITE BLOOD COUNT 5.5 x1000/uL (4.5-11.0)
[2023-07-22 11:55] LABS: ALANINE AMINOTRANSFERASE 18 IU/L (10-49); ALBUMIN 4.2 g/dL (3.2-4.8); ASPARTATE AMINOTRANSFERASE 22 IU/L (<34); BILIRUBIN TOTAL 0.5 mg/dL (0.1-1.0); CALCIUM 9.2 mg/dL (8.7-10.4); CARBON DIOXIDE 30 mEq/L (21-32); CHLORIDE 104 mEq/L (98-107); CREATININE 0.9 mg/dL (0.6-1.0); GLUCOSE 121 mg/dL (70-105); POTASSIUM 3.9 mEq/L (3.5-5.1); PROTEIN TOTAL 7.4 g/dL (6.0-8.3); SODIUM 139 mEq/L (136-145); UREA NITROGEN BLOOD 12 mg/dL (9-23)
[2023-07-22] MEDS: FAMOTIDINE 20MG TABLET PO ONE (13:00)
[2023-07-22] MEDS: MAGNESIUM/ALUMINUM HYDROXIDE/SIMETHICONE 30ML UDC PO STA (14:24)
[2023-07-22 15:40] LABS: CLARITY URINE CLEAR (CLEAR); COLOR URINE YELLOW (YELLOW); GLUCOSE URINE NEGATIVE (NEGATIVE); KETONES URINE NEGATIVE (NEGATIVE); LEUKOCYTE ESTERASE URINE TRACE (NEGATIVE); NITRITE URINE NEGATIVE (NEGATIVE); OCCULT BLOOD URINE NEGATIVE (NEGATIVE); PH URINE 5.5 (4.5-8.0); PROTEIN URINE NEGATIVE (NEGATIVE); SPECIFIC GRAVITY URINE 1.013 (1.005-1.030); UROBILINOGEN URINE 0.2 E.U./dL (0.2-1.0)
[2023-07-22 16:09] LABS: BACTERIA URINE TRACE; RBC URINE 0-2 /hpf (0-2); SQUAMOUS EPITHELIAL CELL URINE 1+ /lpf (RARE/1+); WBC URINE 0-2 /hpf (0-2)
[2023-07-22] MEDS: KETOROLAC 60MG/2ML VIAL IM ONE (16:40)
[2023-07-22] MEDS ORDERED: PHEN-815 MT (16:46)
[2023-07-22] MEDS ORDERED: TAMS-11 MT (16:46)
[2023-07-22 17:11] VITALS: BP 124/93; PULSE 60; RESP 16; TEMP 98.8
== END 2023-07-22 17:59 | disposition home or self-care (01) ==
LOC: ER 11:13
DX: R10.9 Unspecified abdominal pain (principal); Z91.041 Radiographic dye allergy status; Z90.710 Acquired absence of both cervix and uterus
CPT/HCPCS: 99285; 74176; 80053; 81003; 83690; 85025; 36415; 96372; J1885

== ENCOUNTER 2023-09-29 08:28 | Inpatient (IN) | payer MEDICARE, MEDICAID ==
[~2023-09-29] VITALS: Ht 175.3 cm; Wt 80.8 kg
[~2023-09-29 08:28] MED LIST changes: +PHEN-815 MT; +TAMS-11 MT
[2023-09-29 10:32] LABS: BASOPHILS % 1.2 % (0.0-2.0); EOSINOPHILS % 3.2 % (0.0-5.0); HEMATOCRIT. 38.9 % (36.0-48.0); HEMOGLOBIN. 12.9 g/dL (12.0-16.0); LYMPHOCYTES % 35.7 % (20.0-50.0); MEAN CORPUSCULAR HEMOGLOBIN 30.3 pg (28.0-32.0); MEAN CORPUSCULAR VOLUME 91.9 fL (81.0-99.0); MONOCYTES % 11.8 % (2.0-8.0); NEUTROPHILS % 48.1 % (40.0-76.0); PLATELET 290 x1000/uL (130-400); RED BLOOD CELL COUNT 4.24 mill/uL (4.2-5.4); RED CELL DISTRIBUTION WIDTH 13.3 % (11.6-14.6)
[2023-09-29 10:38] LABS: CHLORIDE 103 mEq/L (98-107); POTASSIUM 3.5 mEq/L (3.5-5.1); SODIUM 138 mEq/L (136-145)
[2023-09-29 10:39] LABS: CALCIUM 9.9 mg/dL (8.7-10.4); CARBON DIOXIDE 29 mEq/L (21-32)
[2023-09-29] MEDS: FUROSEMIDE 40MG/4ML VIAL IV ONE (10:41)
[2023-09-29 10:44] LABS: CREATININE 0.9 mg/dL (0.6-1.0); GLUCOSE 99 mg/dL (70-105); UREA NITROGEN BLOOD 18 mg/dL (9-23)
[2023-09-29 11:45] LABS: TROPONIN I HIGH SENSITIVITY < 4 ng/L (3.0-34)
[2023-09-29 12:55] LABS: TROPONIN I HIGH SENSITIVITY < 4 ng/L (3.0-34)
[2023-09-29 16:41] VITALS: BP 134/88; PULSE 70; RESP 18; TEMP 98.2
[2023-09-29] MEDS ORDERED: CHOL400D7 PO (17:00)
[2023-09-29 17:01] VITALS: BP 134/88; PULSE 71; RESP 18; TEMP 98.2
[2023-09-29 20:00] VITALS: BP 104/52; PULSE 70; RESP 20; TEMP 97.8
[2023-09-29] MEDS: ENOXAPARIN 40MG/0.4ML SYR SUBCUT SCH (20:18)
[2023-09-29] MEDS: FUROSEMIDE 100MG/10ML VIAL IVP SCH (20:18)
[2023-09-29] MEDS ORDERED: FUROSEMIDE 40MG/4 ML UDC PO SCH (21:00)
[2023-09-29 23:20] LABS: *AMPHETAMINES SCREEN URINE NEGATIVE (NEGATIVE); *BARBITURATES SCREEN URINE NEGATIVE (NEGATIVE); *BENZODIAZEPINES SCREEN URINE NEGATIVE (NEGATIVE); *COCAINE SCREEN URINE NEGATIVE (NEGATIVE); CANNABINOID URINE SCREEN NEGATIVE (NEGATIVE); ECSTASY MDMA SCREEN URINE NEGATIVE (NEGATIVE); METHADONE URINE SCREEN NEGATIVE (NEGATIVE); OPIATES URINE SCREEN NEGATIVE (NEGATIVE); PHENCYCLIDINE URINE SCREEN NEGATIVE (NEGATIVE)
[2023-09-30] VITALS: BP 88/50; PULSE 61; RESP 19; TEMP 98
[2023-09-30 04:00] VITALS: BP 102/68; PULSE 60; RESP 20; TEMP 97.7
[2023-09-30 08:00] VITALS: BP 111/68; PULSE 57; RESP 18; TEMP 97.7
[2023-09-30] MEDS: METOLAZONE 2.5MG TABLET PO SCH (09:29)
[2023-09-30 12:00] VITALS: BP 104/60; PULSE 78; RESP 14; TEMP 97.5
[2023-09-30 16:00] VITALS: BP 113/66; PULSE 83; RESP 16; TEMP 97.1
[2023-09-30] MEDS: ACETAMINOPHEN 325MG TABLET PO PRN (19:55)
[2023-09-30 20:00] VITALS: BP 115/67; PULSE 65; RESP 18; TEMP 97.5
[2023-10-01] VITALS: BP 108/61; PULSE 72; RESP 18; TEMP 97.8
[2023-10-01 04:00] VITALS: BP 105/63; PULSE 68; RESP 18; TEMP 97.5
[2023-10-01 09:38] LABS: CALCIUM 10.1 mg/dL (8.7-10.4)
[2023-10-01 10:13] LABS: CREATININE 1.6 mg/dL (0.6-1.0); POTASSIUM 2.7 mEq/L (3.5-5.1)
[2023-10-01 12:00] VITALS: BP 113/67; PULSE 88; RESP 18; TEMP 97.7
[2023-10-01] MEDS: POTASSIUM CHLORIDE 20MEQ TABLET SR PO NR ×2 (12:36→17:20)
[2023-10-01 16:00] VITALS: BP 113/76; PULSE 89; RESP 18; TEMP 98.1
[2023-10-01 20:00] VITALS: PULSE 74; RESP 18; TEMP 97.3
[2023-10-02] VITALS: BP 99/59; PULSE 87; RESP 18; TEMP 97.3
[2023-10-02 04:00] VITALS: BP 108/82; PULSE 60; RESP 18; TEMP 97.3
[2023-10-02 08:00] VITALS: BP 139/69; PULSE 69; RESP 18; TEMP 97.6
[2023-10-02 12:00] VITALS: BP 139/82; PULSE 58; RESP 17; TEMP 97.4
[2023-10-02 16:00] VITALS: BP 139/47; PULSE 59; RESP 19; TEMP 98.3
[2023-10-02 16:01] LABS: HEMATOCRIT 42.9 % (36.0-48.0); HEMOGLOBIN 14.5 g/dL (12.0-16.0); MEAN CORPUSCULAR HGB CONC 33.7 g/dL (31.0-37.0); PLATELET 314 x1000/uL (130-400); RED BLOOD CELL COUNT 4.82 mill/uL (4.2-5.4); RED CELL DISTRIBUTION WIDTH 12.8 % (11.6-14.6)
[2023-10-02 16:06] LABS: CALCIUM 9.9 mg/dL (8.7-10.4)
[2023-10-02 16:12] LABS: CREATININE 1.5 mg/dL (0.6-1.0)
[2023-10-02 16:19] LABS: POTASSIUM 2.1 mEq/L (3.5-5.1)
[2023-10-02] MEDS: ONDANSETRON HCL 4MG/2ML INJ IV PRN (16:49)
[2023-10-02] MEDS: POTASSIUM CHLORIDE 20MEQ TABLET SR PO NR (16:49)
[2023-10-02] MEDS: KCL 20MEQ/100ML PREMIX 100 ML IV SCH (17:33)
[2023-10-02 20:00] VITALS: BP 140/81; PULSE 86; RESP 18; TEMP 97.7
[2023-10-02] MEDS: FUROSEMIDE 40MG/4ML VIAL IVP SCH (20:48)
[2023-10-03] VITALS (8 sets, daily range): BP systolic 111–145; BP diastolic 76–106; PULSE 83–106; RESP 16–20; TEMP 97.3–98.1
[2023-10-03 06:03] LABS: CALCIUM 9.8 mg/dL (8.7-10.4)
[2023-10-03 06:07] LABS: CREATININE 1.3 mg/dL (0.6-1.0)
[2023-10-03 06:43] LABS: POTASSIUM 2.4 mEq/L (3.5-5.1)
[2023-10-03] MEDS: POTASSIUM CHLORIDE 20MEQ TABLET SR PO NR ×4 (07:07→20:04)
[2023-10-03] MEDS: KCL 20MEQ/100ML PREMIX 100 ML IV SCH ×2 (08:16→18:42)
[2023-10-03 13:06] LABS: CLARITY URINE CLEAR (CLEAR); COLOR URINE YELLOW (YELLOW); GLUCOSE URINE NEGATIVE (NEGATIVE); KETONES URINE NEGATIVE (NEGATIVE); LEUKOCYTE ESTERASE URINE TRACE (NEGATIVE); NITRITE URINE NEGATIVE (NEGATIVE); OCCULT BLOOD URINE NEGATIVE (NEGATIVE); PH URINE 7.5 (4.5-8.0); PROTEIN URINE NEGATIVE (NEGATIVE); UROBILINOGEN URINE 0.2 E.U./dL (0.2-1.0)
[2023-10-03 13:18] LABS: BACTERIA URINE TRACE; RBC URINE 0-2 /hpf (0-2); SQUAMOUS EPITHELIAL CELL URINE 2+ /lpf (RARE/1+); YEAST URINE NONE SEEN
[2023-10-03 14:02] LABS: POTASSIUM 2.4 mEq/L (3.5-5.1)
[2023-10-04] VITALS: BP 136/78; PULSE 77; RESP 16; TEMP 98.3
[2023-10-04 04:00] VITALS: BP 138/89; PULSE 96; RESP 16; TEMP 97.7
[2023-10-04 06:54] LABS: CHLORIDE 92 mEq/L (98-107); SODIUM 132 mEq/L (136-145)
[2023-10-04 06:55] LABS: CARBON DIOXIDE 28 mEq/L (21-32)
[2023-10-04 06:56] LABS: CALCIUM 9.9 mg/dL (8.7-10.4)
[2023-10-04 07:00] LABS: GLUCOSE 125 mg/dL (70-105)
[2023-10-04 07:01] LABS: UREA NITROGEN BLOOD 29 mg/dL (9-23)
[2023-10-04 08:00] VITALS: BP 123/95; PULSE 81; RESP 18; TEMP 96.1
[2023-10-04 12:00] VITALS: BP 131/82; PULSE 80; RESP 20; TEMP 96.6
[2023-10-04 14:05] VITALS: BP 131/82; PULSE 80; TEMP 96.6; O2SAT 98
== END 2023-10-04 14:45 | disposition home or self-care (01) | DRG 291 ==
LOC: ER 08:28 → 5WST 11:20 → EDBEDREQ 11:21 → EDBEDREQTM 11:21 → 7EST 16:23
PROVIDERS: ADMIT Internal Medicine; ATTEND Internal Medicine
DX: I11.0 Hypertensive heart disease with heart failure (principal); I50.33 Acute on chronic diastolic (congestive) heart failure; E11.9 Type 2 diabetes mellitus without complications; Z91.041 Radiographic dye allergy status; Z82.49 Family history of ischemic heart disease and other diseases of the circulatory system; Z83.3 Family history of diabetes mellitus; T50.2X5A Adverse effect of carbonic-anhydrase inhibitors, benzothiadiazides and other diuretics, initial encounter; Z90.710 Acquired absence of both cervix and uterus
CPT/HCPCS: 36415; 71045; 80048; 80305; 81003; 83735; 83880; 84132; 84484; 85025; 85027; 93005; 93970; 99285; J1650; J1940; J2405; J3480

== ENCOUNTER 2024-05-15 10:40 | Emergency (ER) | payer MEDICARE, MEDICAID ==
[~2024-05-15] VITALS: Ht 175.3 cm; Wt 82.0 kg
[~2024-05-15 10:40] MED LIST changes: +CHOL400D7 PO
[2024-05-15 10:47] VITALS: BP 156/102; PULSE 89; RESP 16; TEMP 36.8; O2SAT 98
[2024-05-15 12:21] LABS: CLARITY URINE CLOUDY (CLEAR); COLOR URINE YELLOW (YELLOW); GLUCOSE URINE NEGATIVE (NEGATIVE); KETONES URINE NEGATIVE (NEGATIVE); LEUKOCYTE ESTERASE URINE 3+ (NEGATIVE); NITRITE URINE NEGATIVE (NEGATIVE); OCCULT BLOOD URINE NEGATIVE (NEGATIVE); PH URINE 6.5 (4.5-8.0); PROTEIN URINE TRACE (NEGATIVE); SPECIFIC GRAVITY URINE 1.018 (1.005-1.030); UROBILINOGEN URINE 0.2 E.U./dL (0.2-1.0)
[2024-05-15 12:38] LABS: BACTERIA URINE 4+; SQUAMOUS EPITHELIAL CELL URINE 2+ /lpf (RARE/1+); WBC URINE TNTC /hpf (0-2); YEAST URINE NONE SEEN
[2024-05-15] MEDS ORDERED: LOSA50TA41 MT (13:40)
[2024-05-15] MEDS ORDERED: IBUP-2029 MT (13:40)
[2024-05-15] MEDS ORDERED: METH-653 MT (13:40)
[2024-05-15] MEDS ORDERED: CEFP200T14 MT (13:40)
== END 2024-05-15 15:24 | disposition home or self-care (01) ==
LOC: ER 10:40
DX: S43.401A Unspecified sprain of right shoulder joint, initial encounter (principal); N39.0 Urinary tract infection, site not specified; E11.9 Type 2 diabetes mellitus without complications; I10 Essential (primary) hypertension; Z79.899 Other long term (current) drug therapy; Z87.440 Personal history of urinary (tract) infections; Z90.710 Acquired absence of both cervix and uterus; Z91.041 Radiographic dye allergy status; X58.XXXA Exposure to other specified factors, initial encounter; Y93.89 Activity, other specified; Y92.89 Other specified places as the place of occurrence of the external cause; Y99.8 Other external cause status
CPT/HCPCS: 73030; 81003; 81025; 99284

== ENCOUNTER 2024-10-10 09:19 | Emergency (ER) | payer MEDICARE, MEDICAID ==
[~2024-10-10] VITALS: Ht 167.6 cm; Wt 82.0 kg
[~2024-10-10 09:19] MED LIST changes: +CEFP200T14 MT; +IBUP-2029 MT; +LOSA50TA41 MT; +METH-653 MT; -TAMS-11 MT; +TAMS-54 MT
[2024-10-10 09:20] VITALS: TEMP 36.3; O2SAT 98
[2024-10-10 10:00] LABS: BASOPHILS % 1.1 % (0.0-2.0); EOSINOPHILS % 2.9 % (0.0-5.0); HEMATOCRIT. 42.4 % (36.0-48.0); HEMOGLOBIN. 13.7 g/dL (12.0-16.0); LYMPHOCYTES % 30.2 % (20.0-50.0); MEAN PLATELET VOLUME 8.1 fl (7.4-10.4); MONOCYTES % 11.3 % (2.0-8.0); NEUTROPHILS % 54.5 % (40.0-76.0); PLATELET 274 x1000/uL (130-400); RED BLOOD CELL COUNT 4.68 mill/uL (4.2-5.4); RED CELL DISTRIBUTION WIDTH 13.4 % (11.6-14.6)
[2024-10-10 10:20] LABS: CREATININE 0.9 mg/dL (0.6-1.0); UREA NITROGEN BLOOD 12 mg/dL (9-23)
[2024-10-10 10:21] LABS: TROPONIN I HIGH SENSITIVITY < 4 ng/L (3.0-34)
[2024-10-10 11:00] VITALS: BP 151/97; PULSE 66; RESP 15; O2SAT 97
[2024-10-10] MEDS ORDERED: POTA-205 MT (11:02)
[2024-10-10] MEDS ORDERED: FURO40TA5 MT (11:02)
== END 2024-10-10 12:24 | disposition home or self-care (01) ==
LOC: ER 09:19
DX: R60.0 Localized edema (principal); E11.9 Type 2 diabetes mellitus without complications; I11.0 Hypertensive heart disease with heart failure; I50.9 Heart failure, unspecified; Z90.710 Acquired absence of both cervix and uterus; Z91.041 Radiographic dye allergy status; Z79.899 Other long term (current) drug therapy
CPT/HCPCS: 36415; 71045; 80048; 83880; 84484; 85025; 99285